=== PATIENT | male | born 1965 | race Caucasian/White ===

== ENCOUNTER 2023-04-12 09:00 | Inpatient (IN) | payer OTHER ==
[2023-04-08 16:31] VITALS: BMI 31.0
[2023-04-14] MEDS ORDERED: THROMBIN (BOVINE) 5,000 UNIT VIAL TP ONE (07:15)
[2023-04-14] MEDS ORDERED: GENTAMICIN SO4 80 MG/2 ML VIAL ONE (07:15)
[2023-04-14] MEDS ORDERED: BUPIVACAINE LIPOSOME/PF (EXPAREL) 266 MG/20 ML VIAL ONE (07:16)
[2023-04-14] MEDS ORDERED: BUPIVACAINE HCL/PF 0.5% (5MG/ML) 10 ML VIAL ONE (07:16)
[2023-04-14] MEDS ORDERED: LIDOCAINE 1%/EPI 1:100000 (20 ML MULTI DOSE VIAL) ONE (07:16)
[2023-04-14] MEDS: ceFAZolin SODIUM 1 GM VIAL IVPB ONE ×3 (07:33→11:30)
[2023-04-14] MEDS: VANCOMYCIN 1 GM in D5W (PRE-DOCKED) 1,000 MG/250 ML (RESTRICTED TO ID ONLY IVPB ONE ×2 (07:34→08:00)
[2023-04-14] MEDS: LIDOCAINE 1%/EPI 1:100000 (20 ML MULTI DOSE VIAL) IJ ONE ×4 (07:34→11:58)
[2023-04-14] MEDS ORDERED: FAMOTIDINE 20 MG/50 ML IVPB 20 MG/50 ML MG IVPB ONE (08:48)
[2023-04-14] MEDS: THROMBIN (BOVINE) 5,000 UNIT VIAL TP ONE ×2 (09:03→10:00)
[2023-04-14] MEDS: GENTAMICIN 80MG PREMIX BAG IVPB ONE ×2 (09:04→10:26)
[2023-04-14] MEDS: HYDROGEN PEROXIDE 473 ML PO ONE ×2 (09:42→10:26)
[2023-04-14] MEDS ORDERED: BACITRACIN ZINC 15 GM TUBE TOPICAL OINTMENT ONE (10:31)
[2023-04-14] MEDS ORDERED: diphenhydrAMINE HCL 25 MG CAPSULE (FP) PO PRN (15:07)
[2023-04-14] MEDS: BUPIVACAINE HCL/PF 0.5% (5MG/ML) 10 ML VIAL IJ ONE (15:16)
[2023-04-14] MEDS: BUPIVACAINE LIPOSOME/PF (EXPAREL) 266 MG/20 ML VIAL NR ONE (15:16)
[2023-04-14] MEDS ORDERED: HYDROmorphone *PCA* 10MG/50ML DISP.SYRIN ONE (15:55)
[2023-04-14] MEDS: LACTATED RINGERS SOLUTION 1,000 ML/1,000 ML INFUS.BAG IV SCH ×2 (16:00→19:02)
[2023-04-14] MEDS: HYDROmorphone *PCA* 10MG/50ML DISP.SYRIN PCA SCH (16:00)
[2023-04-14] MEDS ORDERED: hydrALAZINE HCL 20 MG/ML VIAL ONE (16:41)
[2023-04-14] MEDS: hydrALAZINE HCL 20 MG/ML VIAL IVPUSH PRN (16:42)
[2023-04-14] MEDS: hydrALAZINE HCL 20 MG/ML VIAL IVPUSH ONE (16:45)
[2023-04-14] MEDS ORDERED: CEFAZOLIN 1 GM in DEXTROSE 5%-WATER - 50 ML IVPB SCH (18:00)
[2023-04-14] MEDS: CEFOXITIN SODIUM 2 GM in DEXTROSE 5%-WATER - 100 ML IVPB ONE (18:39)
[2023-04-14] MEDS: CEFAZOLIN 1 GM in DEXTROSE 5%-WATER - 50 ML IVPB SCH ×2 (18:55→21:40)
[2023-04-14] MEDS: HEPARIN NA (PORCINE) 5,000 UNITS/ML 1ML VIAL SQ SCH (18:55)
[2023-04-14] MEDS: LACTATED RINGERS SOLUTION 1,000 ML IV SCH (19:02)
[2023-04-14] MEDS: hydrALAZINE HCL 25 MG TABLET (FP) PO ONE (19:02)
[2023-04-14] MEDS: amLODIPine BESYLATE 5 MG TABLET (FP) PO ONE ×2 (19:02→21:33)
[2023-04-14] MEDS ORDERED: INSULIN (NOVOLOG) ASPART 100 UNITS/ML 10ML VIAL ONE (21:11)
[2023-04-14] MEDS: ACETAMINOPHEN 1000 MG/100 ML BAG IVPB PRN (21:29)
[2023-04-14] MEDS: DOCUSATE SODIUM 100 MG CAPSULE (FP) PO SCH (21:33)
[2023-04-14] MEDS: ATORVASTATIN CA 40 MG TABLET (FP) PO SCH (21:33)
[2023-04-14] MEDS: INSULIN ASPART SLIDING SCALE (NOVOLOG) 1 VIAL SQ SCH (21:43)
[2023-04-14] MEDS: ONDANSETRON 4 MG/2 ML VIAL IVPUSH PRN (22:23)
[2023-04-15] MEDS: hydrALAZINE HCL 25 MG TABLET (FP) PO ONE (00:06)
[2023-04-15] MEDS: oxyCODONE HCL 5 MG TABLET PO ONE (01:33)
[2023-04-15] MEDS ORDERED: GENTAMICIN SO4 80 MG/2 ML VIAL ONE (03:59)
[2023-04-15] MEDS ORDERED: THROMBIN (BOVINE) 5,000 UNIT VIAL TP ONE ×3 (03:59→04:12)
[2023-04-15] MEDS ORDERED: PROPOFOL 40 ML ONE (04:11)
[2023-04-15] MEDS ORDERED: ceFAZolin SODIUM 1 GM VIAL ONE ×2 (04:12→21:23)
[2023-04-15] MEDS ORDERED: BACITRACIN ZINC 15 GM TUBE TOPICAL OINTMENT ONE (04:12)
[2023-04-15] MEDS ORDERED: VANCOMYCIN 1,000 MG VIAL (RESTRICTED TO ID ONLY) ONE (04:12)
[2023-04-15] MEDS ORDERED: SUCCINYLCHOLINE CHLORIDE 200 MG/10 ML SYRINGE ONE (04:12)
[2023-04-15] MEDS ORDERED: SODIUM CHLORIDE 0.9% P/F 10 ML VIAL IJ ONE (04:12)
[2023-04-15] MEDS ORDERED: ROCURONIUM BROMIDE 50 MG/5 ML SYRINGE ONE (04:12)
[2023-04-15] MEDS: ceFAZolin SODIUM 1 GM VIAL IVPB ONE (04:38)
[2023-04-15] MEDS: VANCOMYCIN 1 GM in D5W (PRE-DOCKED) 1,000 MG/250 ML (RESTRICTED TO ID ONLY IVPB ONE (04:40)
[2023-04-15] MEDS: HYDROGEN PEROXIDE 473 ML PO ONE (05:01)
[2023-04-15] MEDS: GENTAMICIN SO4 80 MG/2 ML VIAL IVPB ONE (05:01)
[2023-04-15] MEDS: THROMBIN (BOVINE) 5,000 UNIT VIAL TP ONE (05:02)
[2023-04-15] MEDS ORDERED: BUPIVACAINE LIPOSOME/PF (EXPAREL) 266 MG/20 ML VIAL ONE (05:09)
[2023-04-15] MEDS ORDERED: BUPIVACAINE HCL/PF 0.5% (5MG/ML) 10 ML VIAL ONE ×2 (05:09→05:11)
[2023-04-15] MEDS: BUPIVACAINE HCL/PF 0.5% (5MG/ML) 10 ML VIAL IJ ONE (05:17)
[2023-04-15] MEDS ORDERED: SUGAMMADEX SODIUM 200 MG/2 ML VIAL ONE (05:34)
[2023-04-15] MEDS ORDERED: hydrALAZINE HCL 20 MG/ML VIAL ONE (05:54)
[2023-04-15] MEDS ORDERED: METOPROLOL TARTRATE 5 MG/5 ML VIAL ONE (06:07)
[2023-04-15] MEDS ORDERED: ONDANSETRON 4 MG/2 ML VIAL IVPUSH PRN ×4 (06:14→06:36)
[2023-04-15] MEDS ORDERED: PROMETHAZINE HCL 25 MG/1 ML VIAL IVPB PRN ×3 (06:14→06:36)
[2023-04-15] MEDS: HYDROmorphone *PCA* 10MG/50ML DISP.SYRIN PCA SCH ×2 (06:15→06:48)
[2023-04-15] MEDS ORDERED: DEXAMETHASONE SOD PHOSPHATE 4 MG/1 ML VIAL IVPUSH PRN (06:16)
[2023-04-15] MEDS ORDERED: ACETAMINOPHEN 1000 MG/100 ML BAG IVPB PRN (06:36)
[2023-04-15] MEDS ORDERED: diphenhydrAMINE HCL 25 MG CAPSULE (FP) PO PRN (06:36)
[2023-04-15] MEDS: INSULIN ASPART SLIDING SCALE (NOVOLOG) 1 VIAL SQ SCH (07:00)
[2023-04-15 07:42] LABS: POTASSIUM 4.3 mmol/L (3.5-5.1)
[2023-04-15 07:43] LABS: BLOOD UREA NITROGEN 18.9 mg/dL (7-18); CALCIUM 8.6 mg/dL (8.5-10.1)
[2023-04-15 07:44] LABS: HEMATOCRIT 44.9 % (35.4-49); HEMOGLOBIN 14.7 GM/dL (11.7-16.9); MCH 28.2 pg (25.7-33.7); MCHC 32.7 g/dl (32.0-35.9); MEAN CELL VOLUME 86.2 fl (80-96); MEAN PLT VOLUME 9.2 fl (7.5-11.1); PLATELET COUNT 191 10^3/uL (134-434); RBC 5.21 M/mm3 (4.00-5.60); RDW 15.7 % (11.9-15.9); WHITE BLOOD COUNT 17.1 K/mm3 (4.0-10.0)
[2023-04-15] MEDS: PANTOPRAZOLE 20 MG TABLET PO SCH (08:53)
[2023-04-15] MEDS ORDERED: PANTOPRAZOLE 20 MG TABLET PO SCH ×2 (10:00)
[2023-04-15] MEDS ORDERED: FOLIC ACID 1 MG TABLET (FP) PO SCH (10:00)
[2023-04-15] MEDS ORDERED: FINASTERIDE 5 MG TABLET (FP) PO SCH (10:00)
[2023-04-15] MEDS: FOLIC ACID 1 MG TABLET (FP) PO SCH (10:36)
[2023-04-15] MEDS: FINASTERIDE 5 MG TABLET (FP) PO SCH (10:36)
[2023-04-15] MEDS: LACTATED RINGERS SOLUTION 1,000 ML/1,000 ML INFUS.BAG IV SCH (11:13)
[2023-04-15] MEDS: LACTATED RINGERS SOLUTION 1,000 ML IV SCH ×2 (11:22→11:23)
[2023-04-15] MEDS: hydrALAZINE HCL 25 MG TABLET (FP) PO PRN ×2 (14:27→23:01)
[2023-04-15] MEDS: DOCUSATE SODIUM 100 MG CAPSULE (FP) PO SCH (14:28)
[2023-04-15] MEDS: CEFAZOLIN 1 GM in DEXTROSE 5%-WATER - 50 ML IVPB SCH (14:28)
[2023-04-15] MEDS: HEPARIN NA (PORCINE) 5,000 UNITS/ML 1ML VIAL SQ SCH (14:28)
[2023-04-15] MEDS: hydrALAZINE HCL 20 MG/ML VIAL IVPB ONE (17:42)
[2023-04-15] MEDS ORDERED: INSULIN (NOVOLOG) ASPART 100 UNITS/ML 10ML VIAL ONE (21:23)
[2023-04-15] MEDS: ATORVASTATIN CA 40 MG TABLET (FP) PO SCH (22:57)
[2023-04-16] MEDS: LOSARTAN 50MG/HCTZ 12.5MG 1 TAB PO SCH (11:36)
[2023-04-16] MEDS ORDERED: INSULIN (NOVOLOG) ASPART 100 UNITS/ML 10ML VIAL ONE ×3 (11:38→20:58)
[2023-04-16] MEDS: amLODIPine BESYLATE 10 MG TABLET (FP) PO SCH (14:47)
[2023-04-16] MEDS: HYDROCHLOROTHIAZIDE 12.5 MG CAPSULE (FP) PO ONE (20:27)
[2023-04-16] MEDS: LOSARTAN POTASSIUM 50 MG TABLET PO ONE (20:27)
[2023-04-17] MEDS ORDERED: INSULIN (LEVEMIR) 100 UNITS/ML UNITS SQ ONE (07:56)
[2023-04-17] MEDS: LOSARTAN 50MG/HCTZ 12.5MG 1 TAB PO ONE (09:09)
[2023-04-17] MEDS ORDERED: ACETAMINOPHEN 325 MG TABLET (FP) PO PRN (10:48)
[2023-04-17] MEDS ORDERED: INSULIN (NOVOLOG) ASPART 100 UNITS/ML 10ML VIAL ONE (11:58)
[2023-04-17 12:04] LABS: BASO % 0.6 % (0-2.0); EOS % 0.2 % (0-4.5); HEMATOCRIT 40.6 % (35.4-49); HEMOGLOBIN 13.6 GM/dL (11.7-16.9); LYMPH % 20.2 % (8-40); MCH 28.9 pg (25.7-33.7); MCHC 33.5 g/dl (32.0-35.9); MEAN CELL VOLUME 86.2 fl (80-96); MEAN PLT VOLUME 8.5 fl (7.5-11.1); MONO % 12.1 % (3.8-10.2); NEUT % 66.9 % (42.8-82.8); PLATELET COUNT 171 10^3/uL (134-434); RBC 4.71 M/mm3 (4.00-5.60); RDW 15.2 % (11.9-15.9); WHITE BLOOD COUNT 11.4 K/mm3 (4.0-10.0)
[2023-04-17] MEDS: INSULIN ASPART SLIDING SCALE (NOVOLOG) 1 VIAL SQ SCH ×2 (12:08→18:46)
[2023-04-17 12:28] LABS: POTASSIUM 4.2 mmol/L (3.5-5.1)
[2023-04-17 12:30] LABS: BLOOD UREA NITROGEN 19.6 mg/dL (7-18); CALCIUM 9.5 mg/dL (8.5-10.1)
[2023-04-17 12:33] LABS: CREATININE 0.7 mg/dL (0.55-1.3)
[2023-04-17] MEDS ORDERED: HYDROmorphone HCl 2 MG/ML VIAL IVPB PRN (14:09)
[2023-04-17] MEDS ORDERED: oxyCODONE HCL 5 MG TABLET PO PRN ×2 (14:20→15:00)
[2023-04-17] MEDS: HYDROmorphone *PCA* 10MG/50ML DISP.SYRIN PCA SCH (17:58)
[2023-04-17] MEDS: CYCLOBENZAPRINE HCL 10 MG TABLET (FP) PO SCH (18:02)
[2023-04-18 09:15] LABS: BASO % 0.5 % (0-2.0); EOS % 0.6 % (0-4.5); HEMATOCRIT 41.8 % (35.4-49); HEMOGLOBIN 13.9 GM/dL (11.7-16.9); LYMPH % 18.5 % (8-40); MCH 28.8 pg (25.7-33.7); MCHC 33.4 g/dl (32.0-35.9); MEAN CELL VOLUME 86.3 fl (80-96); MEAN PLT VOLUME 9.2 fl (7.5-11.1); MONO % 11.1 % (3.8-10.2); NEUT % 69.3 % (42.8-82.8); PLATELET COUNT 177 10^3/uL (134-434); RBC 4.84 M/mm3 (4.00-5.60); RDW 15.1 % (11.9-15.9); WHITE BLOOD COUNT 11.4 K/mm3 (4.0-10.0)
[2023-04-18 09:17] LABS: POTASSIUM 3.5 mmol/L (3.5-5.1)
[2023-04-18 09:21] LABS: CALCIUM 9.2 mg/dL (8.5-10.1)
[2023-04-18 09:25] LABS: CREATININE 0.8 mg/dL (0.55-1.3)
[2023-04-18] MEDS ORDERED: oxyCODONE HCL 5 MG TABLET PO PRN (10:28)
[2023-04-18] MEDS: oxyCODONE HCL 5 MG TABLET PO PRN (10:49)
[2023-04-18] MEDS ORDERED: INSULIN (NOVOLOG) ASPART 100 UNITS/ML 10ML VIAL ONE ×3 (11:21→20:55)
[2023-04-18] MEDS: ACETAMINOPHEN 325 MG TABLET (FP) PO SCH (14:52)
[2023-04-18] MEDS: DOCUSATE SODIUM 100 MG CAPSULE (FP) PO SCH (21:09)
[2023-04-19] MEDS ORDERED: INSULIN (NOVOLOG) ASPART 100 UNITS/ML 10ML VIAL ONE (11:12)
[2023-04-19] MEDS: GABAPENTIN 100 MG CAPSULE PO ONE (13:07)
[2023-04-19] MEDS: GABAPENTIN 100 MG CAPSULE PO SCH (13:39)
[2023-04-19 15:05] VITALS: BP 132/75; PULSE 88; RESP 18; TEMP 97.8
== END 2023-04-19 16:14 | disposition home or self-care (01) | DRG 473 ==
LOC: J2C 04-14 04:08 → J8W 04-14 18:35
PROVIDERS: ADMIT Internal Medicine; ATTEND Nurse Practitioner Family
PROC: 0RB30ZZ Excision of Cervical Vertebral Disc, Open Approach (ICD-10-PCS; 2023-04-14)
PROC: 0RP104Z Removal of Internal Fixation Device from Cervical Vertebral Joint, Open Approach (ICD-10-PCS; 2023-04-14)
PROC: 0RG40A0 Fusion of Cervicothoracic Vertebral Joint with Interbody Fusion Device, Anterior Approach, Anterior Column, Open Approach (ICD-10-PCS; 2023-04-14)
PROC: 0RB50ZZ Excision of Cervicothoracic Vertebral Disc, Open Approach (ICD-10-PCS; 2023-04-14)
PROC: 4A1004G Monitoring of Central Nervous Electrical Activity, Intraoperative, Open Approach (ICD-10-PCS; 2023-04-14)
PROC: 0RG20A0 Fusion of 2 or more Cervical Vertebral Joints with Interbody Fusion Device, Anterior Approach, Anterior Column, Open Approach (ICD-10-PCS; principal; 2023-04-14 08:00)
PROC: 00NW0ZZ Release Cervical Spinal Cord, Open Approach (ICD-10-PCS; 2023-04-14 08:00)
PROC: 00NW0ZZ Release Cervical Spinal Cord, Open Approach (ICD-10-PCS; 2023-04-15)
DX: M47.12 Other spondylosis with myelopathy, cervical region (principal); M40.202 Unspecified kyphosis, cervical region; I10 Essential (primary) hypertension; E66.9 Obesity, unspecified; E78.5 Hyperlipidemia, unspecified; K21.9 Gastro-esophageal reflux disease without esophagitis; Z68.31 Body mass index [BMI] 31.0-31.9, adult; N40.0 Benign prostatic hyperplasia without lower urinary tract symptoms; I16.0 Hypertensive urgency; G89.18 Other acute postprocedural pain; I97.3 Postprocedural hypertension; Y83.9 Surgical procedure, unspecified as the cause of abnormal reaction of the patient, or of later complication, without mention of misadventure at the time of the procedure
CPT/HCPCS: 36415; 72125-TC; 72141-TC; 76000-TC-FY; 80048; 82962; 83036; 85025; 85027; 86850; 86900; 86901; 88307-TC; 94760; 97116-GP; 97161-GP; C1713; J0131; J1644